=== PATIENT | female | born 1955 | race Two or more races ===

== ENCOUNTER → 2019-05-09 | Outpatient (CLI) | payer OTHER | END | disposition home or self-care (01) | LOC: MAMO-SONO 12:15 | DX: Z12.31 Encounter for screening mammogram for malignant neoplasm of breast (principal); Z87.898 Personal history of other specified conditions; I11.9 Hypertensive heart disease without heart failure; R73.01 Impaired fasting glucose; E02 Subclinical iodine-deficiency hypothyroidism; E66.3 Overweight; E78.1 Pure hyperglyceridemia; N64.4 Mastodynia ==